=== PATIENT | male | born 1985 | race Caucasian/White ===

== ENCOUNTER 2017-09-01 09:30 | Emergency (ER) | payer OTHER, SELFPAY ==
[2017-09-01] MEDS ORDERED: Naproxen 500 MG TAB ONE (09:59)
[2017-09-01] MEDS ORDERED: HYDROcodone/Acetaminophen 10/325 mg Tablet ONE (09:59)
--- NOTE | 2017-09-01 11:32 | RAD ---
2 VIEWS LEFT HIP: Date: 09/01/17 COMPARISON: None. HISTORY: Pain, no trauma. FINDINGS: An incompletely imaged intramedullary cj with two proximal interlocking screws is noted within the left femur, treating a fracture of the proximal/mid shaft of the left femur. There is no evidence fo r acute fracture or dislocation involving the left hip. IMPRESSION: Incompletely imaged postoperative hardware treating a left femur fracture. No acute osseous abnormal ity is seen in the region of the left hip. POS: DOMENICA
--- NOTE | 2017-09-01 11:33 | RAD ---
4 VIEWS OF LEFT KNEE: Date: 09/01/17 COMPARISON: None. HISTORY: Pain. FINDINGS: There is no knee joint effusion. There is mild patellofemoral joint space narrowing. There is no acu te fracture or evidence of dislocation seen. There is an intramedullary cj with two distal interlocking screws within the femur treating a fract ure of the mid shaft of the left femur. The proximal of the two distal interlocking screws demonstra seema incomplete bone purchase. The head of this screw is not flush with the lateral cortex, at least 8 mm from the lateral cortex. There is probably linear lucency adjacent to both interlocking screws suggesting the possibility of loosening of both screws, with lateral retraction of the proximal dist al interlocking screw suspected. No comparison postoperative imaging is available. Recommend orthope dic consultation. IMPRESSION: No acute fracture or evidence of dislocation. Postoperative hardware as detailed above. The proximal of the two distal interlocking screws is not flush with the lateral cortex suggesting that it has r etracted laterally. CODE T. POS: WILMA
== END 2017-09-01 11:39 | disposition home or self-care (01) ==
LOC: MADERS 09:30
DX: M25.562 Pain in left knee (principal); F17.210 Nicotine dependence, cigarettes, uncomplicated

== ENCOUNTER 2017-11-08 10:45 | Emergency (ER) | payer SELFPAY | END 2017-11-08 12:05 | disposition home or self-care (01) | LOC: MADERS 10:45 | DX: K02.9 Dental caries, unspecified (principal); F17.210 Nicotine dependence, cigarettes, uncomplicated | CPT/HCPCS: 99283 ==

== ENCOUNTER 2022-05-18 17:58 | Emergency (ER) | payer BC, SELFPAY ==
[~2022-05-18 17:58] MED LIST: Iopamidol 370 76% 100 ML VIAL ONE
[2022-05-18] MEDS ORDERED: Ketorolac Tromethamine 30 MG/ML VIAL ONE (18:56)
[2022-05-18] MEDS ORDERED: Sodium Chloride 0.9% 1,000 ML BAG ONE (18:56)
[2022-05-18] MEDS ORDERED: Ondansetron PF 4 MG/2 ML Vial ONE (18:56)
[2022-05-18 19:00] LABS: #Basophils 0.1 thou/uL (0.0-0.2); #Eosinphils 0.2 thou/uL (0.0-0.7); #Lymphocytes 2.7 thou/uL (1.20-3.40); #Monocytes 0.6 thou/uL (0.11-0.59); #Neutrophils 11.9 thou/uL (1.40-6.50); %Basophils 0.6 % (0.0-1.0); %Eosinophils 1.4 % (0.0-10.0); %Lymphocytes 17.5 % (21.0-51.0); %Monocytes 3.9 % (0.0-10.0); %Neutrophils 76.7 % (42.0-75.0); Mean Corpuscular HGB CONC 35.6 g/dL (32.0-36.0); Mean Corpuscular Volume 89.9 fL (78.0-98.0); Mean Platelet Volume 9.6 fL (7.4-10.4); Platelet Count 216 thou/uL (130-400); RBC Distribution Width 11.2 % (11.5-14.5); Red Blood Cell (RBC) Count 5.02 mill/uL (4.70-6.10); White Blood Cell (WBC) Count 15.5 thou/uL (4.8-10.8)
[2022-05-18 19:15] LABS: ALT (SGPT) 15 U/L (8-55); AST (SGOT) 13 U/L (5-34); Albumin 4.6 g/dL (3.5-5.0); Alkaline Phosphatase 84 U/L (40-110); Anion Gap 13 mmol/L (10-20); BUN (Urea Nitrogen) 15 mg/dL (8.9-20.6); Bilirubin, Total 0.3 mg/dL (0.2-1.2); Calc. Creatinine Clearance 0 mL/min (70-130); Calcium 9.1 mg/dL (7.8-10.44); Carbon Dioxide 24 mmol/L (22-29); Chloride 105 mmol/L (98-107); Estimated GFR 84; Globulin 2.8 g/dL (2.4-3.5); Glucose 112 mg/dL (70-105); Potassium 3.3 mmol/L (3.5-5.1); Protein, Total 7.4 g/dL (6.0-8.3); Sodium 139 mmol/L (136-145)
[2022-05-18] MEDS ORDERED: Morphine 4 MG/ML VIAL ONE (19:51)
[2022-05-18 20:07] LABS: Bilirubin Negative (Negative); Blood, Urine Moderate (Negative); Clarity Clear (Clear); Glucose, Urine (Dipstick) 100 mg/dL (Negative); Ketone, Urine Negative (Negative); Leukocyte Negative (Negative); Nitrite Negative (Negative); Protein, Urine (Dipstick) Negative (Neg-Trace); Specific Gravity, Urine 1.015 (1.005-1.030); Urobilinogen 0.2 mg/dL (Less than 2); pH, Urine 6.5 (5.0-9.0)
[2022-05-18 20:12] LABS: RBC/HPF Greater than 50 HPF (0-3); Squamous Epithelial 0-3 HPF (0-3); WBC/HPF 0-3 HPF (0-3)
== END 2022-05-18 20:50 | disposition home or self-care (01) ==
LOC: MADERS 17:58
DX: N13.2 Hydronephrosis with renal and ureteral calculous obstruction (principal); F17.210 Nicotine dependence, cigarettes, uncomplicated
CPT/HCPCS: 74177; 80053; 81003; 81015; 85025; 96361; 96374; 96375; J1885; J2270; J2405; J7050; Q9967

== ENCOUNTER 2024-10-03 18:32 | Emergency (ER) | payer OTHER, SELFPAY ==
[2024-10-03] MEDS ORDERED: Amoxicillin/Potassium Clav 875 MG TAB ONE (19:18)
== END 2024-10-03 19:23 | disposition home or self-care (01) ==
LOC: MADERS 18:32
DX: K04.7 Periapical abscess without sinus (principal); F17.210 Nicotine dependence, cigarettes, uncomplicated
CPT/HCPCS: 99282